=== PATIENT | female | born 1960 ===

== ENCOUNTER 2018-04-11 07:11 | Day surgery (SDC) | payer BC ==
[~2018-04-11 07:11] MED LIST: Acetaminophen TAB* 325 MG PO PRN; Buffered Lidocaine 0.9% SYRIN* 5 ML/SYR SYRINGE INTRADERM ONE
[2018-04-11] MEDS ORDERED: Ondansetron INJ* 2 MG/ML VIAL ONE (08:40)
[2018-04-11] MEDS ORDERED: Dexamethasone IV* 4 MG/ML 1 ML (4 MG) ONE (08:40)
[2018-04-11] MEDS ORDERED: Lidocaine 2% PF * 5 ML VIAL ONE (08:40)
[2018-04-11] MEDS ORDERED: fentaNYL* 50 MCG/ML 2 ML VIAL (100 MCG VIAL) ONE ×2 (08:40→09:58)
[2018-04-11] MEDS ORDERED: Propofol* 10 MG/ML 20 ML BTL IV PUSH ONE (08:40)
[2018-04-11] MEDS ORDERED: Midazolam* 1 MG/ML 5 ML VIAL (5 MG) ONE (08:41)
[2018-04-11] MEDS ORDERED: Sevoflurane* 1 BTL ONE (08:56)
[2018-04-11] MEDS ORDERED: Phenylephrine 2.5% OPTH.SOL* 2 ML BTL ONE (08:56)
[2018-04-11] MEDS ORDERED: Tetracaine 0.5% OPTH.SOL 15ML* BTL ONE (08:56)
[2018-04-11] MEDS ORDERED: Neomycin/Polymy/Dex OPHTH.OIN* 3.5 GM ONE (08:56)
[2018-04-11] MEDS ORDERED: BSS OPTH.SOL* BTL ONE ×2 (08:56→15:30)
[2018-04-11] MEDS ORDERED: Ketorolac INJ* 30 MG/ML 1 ML VIAL ONE (09:43)
[2018-04-11 11:01] VITALS: BP 134/66
[2018-04-11] MEDS ORDERED: Tetracaine 0.5% OPTH.SOL 4 ML* 1 DROP BTL ONE (15:30)
[2018-04-11] MEDS ORDERED: Povidone Iodine 5% OPTH* 30 ML BTL ONE (15:30)
--- NOTE | 2018-04-11 21:27 | OP ---
DATE OF OPERATION: 04/11/18 [facility] DATE OF : 58 SURGEON: Jony Jimenes MD CLINICAL TRAINING COORDINATOR: None. ANESTHESIA: General. 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 OPERATIVE PROCEDURE: Recess lateral rectus muscle left eye 10 mm, resect medial rectus muscle left eye 9 mm, and recess lateral rectus muscle, right eye 5 mm. COMPLICATIONS: None. BLOOD LOSS: Minimal. DESCRIPTION OF PROCEDURE: The patient was brought to the operating room and received general anesthesia. A drop of tetracaine and a drop of phenylephrine were placed in each eye. The patient was prepped and draped in the usual sterile fashion for ophthalmic surgery and attention was directed to the left eye where a speculum was placed. Forced ductions were performed and appeared normal. The eye was grasped at the limbus in the inferotemporal quadrant and brought to superonasal gaze. An inferotemporal fornix incision was created with a Yosef scissors through the conjunctiva. Tenon's capsule was violated and the lateral rectus muscle was isolated on a Murphy muscle hook. The conjunctiva was reflected over the surface of the hook and the check ligament was violated. The muscle was cleaned with sharp and blunt dissection. A double -armed 6-0 Vicryl suture was woven through the muscle near its insertion and locked at either end. The muscle was disinserted from the globe with a Yosef scissor. The original muscle insertion site was grasped with interrupted locking forceps. The disinserted muscle was inspected and found to be intact on the sutures. There was no bleeding. A key was made on the sclera with a caliper 10.0 mm posterior to the original insertion. The muscle was recessed to this position and tied securely. The locking forceps were removed. Gentle cauterization at the site of locking forceps was performed to achieve hemostasis. The conjunctiva was closed with interrupted 6- 0 gut sutures. The eye was then grasped in the inferonasal quadrant and brought to superotemporal gaze. An inferonasal fornix incision was created with a Yosef scissors through the conjunctiva. Tenon's capsule was opened. The medial rectus was isolated on a Murphy muscle hook. The conjunctiva was reflected over the surface of the muscle. The check ligament was violated. The muscle was cleaned with sharp and blunt dissection near its insertion. The hooks were repositioned such that the muscle could be cleaned along its superonasal surface approximately 11 mm back from the insertion. A second Murphy muscle hook was placed under the muscle and the small hooks were removed. A caliper was used to measure the 9 mm point posterior to original insertion on the muscle. A double-armed 6-0 Vicryl suture was woven through the muscle and locked at either end at this point. A [place] muscle clamp was placed across the muscle between the insertion and the suture. The muscle was disinserted from the globe with a Yosef scissors and the original muscle insertion site was grasped with interrupted locking forceps. The sutures were then placed through the original insertion site and then back up through the underside of the muscle at the site of the previous key. The muscle was pulled such that the suture complex was over the original insertion site. The sutures were tied securely. The distal muscle stump was resected. There was no bleeding noted. The muscle was well aligned to the original insertion site. Instruments were removed from the eye except for the speculum. The conjunctiva was closed with interrupted 6-0 gut sutures. At this point, the speculum was removed and placed in the contralateral eye. Here, in the right eye, forced ductions were also performed and found to be normal. The eye was grasped in the inferotemporal quadrant and brought to superonasal gaze. An inferotemporal fornix incision was created with a Yosef scissor. The Tenon's capsule was opened. The lateral rectus muscle was isolated on a Murphy muscle hook. The conjunctiva was reflected over the surface of the muscle. The check ligament was opened. The muscle end was cleaned with sharp and blunt dissection. A double-armed 6-0 Vicryl suture was woven through the muscle near its insertion and locked at either end. The muscle was disinserted from the globe with a Yosef scissor. The original insertion site was grasped with interrupted locking forceps. The muscle was inspected and found to be intact on the sutures. There was no bleeding. A key was made on the sclera using a caliper 5 mm posterior to the original insertion. The muscle was recessed to this position and tied securely. The locking forceps were removed and gentle cautery to achieve hemostasis at this point was performed. The conjunctiva was then closed with interrupted 6-0 gut sutures. The speculum was removed. At the end of the case, the eyes appeared straight and there was no active bleeding. Topical tetracaine followed by Maxitrol ointment was placed in each eye. The patient was awakened uneventfully and sent to the recovery room in stable condition with postop instructions and followup appointment given. [id number]/[facility] #: [id number] NITIN
== END 2018-04-11 11:25 | disposition home or self-care (01) ==
LOC: OREAST 07:11
PROVIDERS: ATTEND Ophthalmology
DX: H50.112 Monocular exotropia, left eye (principal); Z72.0 Tobacco use
CPT/HCPCS: A9270-GY; J1100; J1885; J2250; J2405; J2704; J3010